=== PATIENT | female | born 1970 | race Caucasian/White ===

== ENCOUNTER 2020-04-24 13:40 | Inpatient (IN) ==
[2020-04-24] MEDS ORDERED: SODIUM CHLORIDE 0.9% 1000ML 1,000 ML IV ONE (14:04)
[2020-04-24] MEDS ORDERED: dexAMETHasone 6 MG in SYRINGE 0 ML IV ONE (14:14)
[2020-04-24] MEDS ORDERED: ONDANSETRON INJ 2 MG/ML 2 ML VIAL IV STA (15:06)
[2020-04-24] MEDS ORDERED: DEXAMETHASONE SOD INJ 4 MG/ML VIAL ONE (15:36)
[2020-04-24 15:53] LABS: Hematocrit (blood only) 33.8 % (37-47); Hemoglobin 11.4 g/dL (12.0-16.0); Mean Corpuscular Hemoglobin 29.2 pg (25-34); Mean Corpuscular Hgb Conc 33.7 g/dL (32-36); Mean Corpuscular Volume 86.4 fL (80-100); Partial Thromboplastin Ratio 1.1; Partial Thromboplastin Time 29.8 Seconds (21.0-31.0); Prothrombin Time 10.5 Seconds (9.0-12.0); RDW Coefficient of Variation 15.5 % (11.5-14.5); Red Blood Count 3.91 M/uL (4.2-5.4); White Blood Count 2.26 K/uL (4.8-10.8)
[2020-04-24 15:59] LABS: Alanine Aminotransferase 34 U/L (12-78); Aspartate Aminotransferase 41 U/L (15-37); BUN Creatinine Ratio 9.2 (10-20); Blood Urea Nitrogen 7 mg/dl (7-18); Calcium 8.2 mg/dl (8.5-10.1); Carbon Dioxide 23 mmol/L (21-32); Chloride 99 mmol/L (98-107); Creatinine Clr Calc Pharmacy 98.1 ml/min; Est GFR (African American) 104.9; Est GFR (Non-African American) 90.5; Glucose 105 mg/dl (70-99); Magnesium 2.2 mg/dl (1.8-2.4); Potassium 3.5 mmol/L (3.5-5.1); Sodium 131 mmol/L (136-145)
[2020-04-24 16:03] LABS: Albumin Globulin Ratio 0.7 (0.9-2); Alkaline Phosphatase 57 U/L (45-117); Bilirubin,Total 0.4 mg/dl (0.2-1); Globulin 4.3 gm/dl (2.5-4.0); Total Protein 7.3 gm/dl (6.4-8.2); Troponin I < 0.015 ng/ml (0-0.045)
--- NOTE | 2020-04-24 16:09 | XRay Report ---
XR chest 1V portable HISTORY: SEPSIS COMPARISON: Chest 11/12/2017. FINDINGS: No pneumothorax. No pleural effusions. The heart remains mildly enlarged. There are low lianet g volumes. There bilateral perihilar patchy airspace opacities consistent with a multifocal pneumonia . IMPRESSION: Bilateral perihilar airspace opacities consistent with a multifocal pneumonia. ACT 112: Negative or not required by law. Electronically signed by: Jude Alvarado M.D. 04/24/2020 4:07 PM
[2020-04-24] MEDS ORDERED: OPTIRAY 320 125ml IV ONE (16:10)
[2020-04-24 16:18] LABS: Giant Platelets 1+; Lymphocytes # (auto) 0.53 K/uL (1.2-3.4); Lymphocytes % (auto) 23.5 %; Mean Platelet Volume 10.7 fL (7.4-10.4); Monocytes # (auto) 0.28 K/uL (0.11-0.59); Monocytes % (auto) 12.4 %; Neutrophils # (auto) 1.45 K/uL (1.4-6.5); Neutrophils % (auto) 64.1 %; Platelet Count 99 K/uL (130-400); Platelet Estimate Decreased (Normal)
--- NOTE | 2020-04-24 16:31 | CT Scan Report ---
CHEST CTA for PULMONARY ARTERIES CT DOSE: 685.41 mGy.cm HISTORY: Shortness of breath. Covid positive. TECHNIQUE: Multiaxial CT images of the chest were performed following the intravenous administration of contrast to evaluate the pulmonary arteries. Maximal intensity projection images were also obtaine d. A dose lowering technique was utilized adhering to the principles of ALARA. COMPARISON STUDY: None. FINDINGS: Normal caliber thoracic aorta with no evidence for dissection. There is mild respiratory mo tion artifact. No definite filling defects within the pulmonary arteries to suggest pulmonary embolus . Small to moderate pericardial effusion measuring a maximal thickness posteriorly of 1.5 cm. The hea rt is normal in size. No pleural effusions. No mediastinal lymphadenopathy. Bilateral hilar lymphaden opathy is likely reactive. Limited views of the upper abdomen demonstrate a normal spleen and visuali zed adrenal glands. There appears to be hepatic steatosis. Normal esophagus. No fractures within the visualized osseous structures. No pneumothorax. The central airways are patent. Extensive bilateral p atchy and irregular airspace opacities. IMPRESSION: 1. No evidence for pulmonary embolus. 2. Extensive bilateral consolidative airspace opacities consistent with a multifocal pneumonia. 3. Small to moderate pericardial effusion. ACT 112: Negative or not required by law. Electronically signed by: Jude Alvarado M.D. 04/24/2020 4:29 PM
--- NOTE | 2020-04-24 16:33 | Emergency Department Note ---
History of Present Illness General Chief complaint: Illness Stated complaint: +COVID,INCREASED SOB Time Seen by Provider: 04/24/20 14:04 History of Present Illness Provider complaint: Shortness of breath Onset (ago): day(s) (11) Relieved By: + none Exacerbated By: + none Associated symptoms: + cough, + fever/chills, + headaches, + nausea/vomiting, + shortness of breath and + weakness 49-year-old female presents to the emergency department for shortness of breath cough diarrhea nausea vomiting and fevers. Patient stated she tested positive for COVID-19 11 days ago. She states she has a home pulse oximeter and her reading was low so she came to the emergency department. She denies any melena, hematochezia, dysuria, hematuria or chance of being . Home Medications Medication Instructions Recorded Confirmed Type tramadol 50 mg tablet See Rx Instructions PO Q6H PRN #20 03/02/20 04/24/20 Rx tab ondansetron HCl 4 mg tablet 4 mg PO Q8H PRN #20 tab 04/22/20 04/24/20 Rx Allergies Allergy/AdvReac Type Severity Reaction Status Date / Time Sulfa (Sulfonamide Allergy Mild Gastrointestinal Verified 04/24/20 14:28 Antibiotics) Upset Penicillins Allergy Unknown RASH A Verified 04/24/20 14:28 CHILD, NO RESP SYMPTOMS Past Med/Surg History Medical History Abdominal bloating Abnormal uterine bleeding (AUB) Acid reflux Cellulitis Chronic diarrhea of unknown origin Coccydynia Elderly primigravida (04/13/11) Eustachian tube dysfunction Fatigue Annie's disease History of gastritis History of gestational diabetes Hypothyroidism Irregular heart beat HOLTER MONITOR AT THIS MOMENT (WEARING FOR 30 DAYS) PRESCRIBED BY [facility]. Menopausal symptoms Obesity Pain of tooth socket Palpitations Right lower quadrant abdominal pain Seizure last one 31 yrs ago--grand mal--no meds Snoring Vasovagal syncope Vulvar itching Surgical History History of appendectomy History of section History of cholecystectomy History of colonoscopy History of dilatation and curettage History of tonsillectomy History of tooth extraction wisdom teeth S/P appendectomy S/P tonsillectomy Status post LASIK surgery of both eyes Status post primary low transverse section Family History Grandmother Family history of diabetes mellitus paternal Mother Family hx of colon cancer Colorectal cancer Hypothyroidism Brother Family hx colonic polyps 2 brothers Family/Other Family hx of colon cancer maternal aunt Family hx colonic polyps maternal aunts/uncles Father Heart disease Social History Smoking Status: Never smoker Second Hand Exposure: Yes (VERY RARELY); Hx Alcohol Use: Yes Alcohol type: beer Hx Substance Use: No Preferred Language: Divehi Communication Ability: Effective [employer] Volleyball [employer] Required: No Beliefs That Will Affect Care: None Current Living Situation: Spouse and Family Current Living Situation Comment: lives with , son and mother current occupational status: employed current occupation: Works in [employer] department at [employer]. Feels Safe at Home: Yes Assistive Devices: None Review of Systems A total of 10 systems reviewed and were otherwise negative Physical Exam Vital Signs Vital Signs - 24 hr 04/24/20 13:55 04/24/20 14:07 04/24/20 14:24 Temperature 36.8 C Temperature Source Temporal Artery Scan Pulse Rate 107 H 100 H Pulse Rate from SpO2 Sensor 100 H Respiratory Rate 22 26 H Respiratory Effort / Characteristics Non-Labored Spontaneous Respiratory Depth Normal Respiratory Pattern Regular Blood Pressure 126/83 Blood Pressure Mean 97 Blood Pressure Position Sitting Pulse Oximetry 92 88 L 92 Oxygen Delivery Method Room Air Room Air Nasal Cannula Oxygen Flow Rate 3 Sepsis Recent Fever Within 48 Hours No Sepsis New/Unexplained Change in Mental Status N/A Sepsis Action Taken by Nursing No Action Required Oxygen Flow Rate - Titration Pulse Oximetry Post Tiitration 04/24/20 14:28 04/24/20 14:29 04/24/20 14:30 Temperature Temperature Source Pulse Rate 100 H Pulse Rate from SpO2 Sensor 101 H Respiratory Rate 28 H Respiratory Effort / Characteristics Spontaneous Respiratory Depth Respiratory Pattern Blood Pressure Blood Pressure Mean Blood Pressure Position Pulse Oximetry 87 L 93 93 Oxygen Delivery Method Room Air Nasal Cannula Nasal Cannula Oxygen Flow Rate 3 Sepsis Recent Fever Within 48 Hours Sepsis New/Unexplained Change in Mental Status Sepsis Action Taken by Nursing Oxygen Flow Rate - Titration 3 Pulse Oximetry Post Tiitration 93 04/24/20 15:00 Temperature Temperature Source Pulse Rate 100 H Pulse Rate from SpO2 Sensor 100 H Respiratory Rate 28 H Respiratory Effort / Characteristics Respiratory Depth Respiratory Pattern Blood Pressure Blood Pressure Mean Blood Pressure Position Pulse Oximetry 94 Oxygen Delivery Method Oxygen Flow Rate Sepsis Recent Fever Within 48 Hours Sepsis New/Unexplained Change in Mental Status Sepsis Action Taken by Nursing Oxygen Flow Rate - Titration Pulse Oximetry Post Tiitration Physical Exam GENERAL: She is oriented to person, place, and time. She appears well-developed and well-nourished. She does not appear distressed. HENT: Exam performed. -Head: Normocephalic and atraumatic. -Right Ear: External ear normal. No mastoid tenderness. -Left Ear: External ear normal. No mastoid tenderness. -Mouth/Throat: The oropharynx is clear and moist. No trismus in the jaw. No dental abscesses or uvula swelling. No oropharyngeal exudate or tonsillar abscesses. EYES: Conjunctivae and EOM are normal. Pupils are equal, round, and reactive to light. Right eye exhibits no discharge. Left eye exhibits no discharge. No scleral icterus. NECK: Normal range of motion. Neck supple. No JVD present. No spinous process tenderness present. No carotid bruit present. No rigidity. No tracheal deviation and normal range of motion present. No Brudzinski's sign and no Kernig's sign noted. CV: Tachycardic rate, regular rhythm, normal heart sounds and intact distal pulses. There is no peripheral edema. Palpable radial pulses bue. PULM/CHEST: Diminished breath sounds bilaterally. -Chest Wall: She exhibits no tenderness. ABD: The abdomen is soft. Bowel sounds are normal. She has no distension. No mass is present. There is no tenderness. There is no rebound, no guarding, no Cutler's sign and no tenderness at McBurney's point. Rovsig negative MUSC/SKEL: Normal range of motion. There is no peripheral edema, tenderness or deformity. LYMPH: No cervical adenopathy. NEURO: She is alert and oriented to person, place, and time. She has normal strength. No cranial nerve deficit or sensory deficit. Coordination and gait normal. GCS eye subscore is 4. GCS verbal subscore is 5. GCS motor subscore is 6. Cerebellar tests wnl. SKIN: Skin is warm and dry. She is not diaphoretic. PSYCH: She has a normal mood and affect. Behavior is normal. Judgment and thought content normal. Course Course 1404: The patient was evaluated in room C5. A complete history and physical exam was performed Cardiac monitoring: An order was placed for continuous cardiac monitoring. The monitor shows a rate of 100 with sinus rhythm Patient was seen in full airborne precautions. Patient was seen in N95's, gloves, gowns, face shield by myself and staff. Patient was found to be hypoxic on room air at 87%. Patient was started on 3 L nasal cannula which improved her oxygen saturation. 6 mg Decadron IV push ordered for the patient. 1636: Vital signs stable on supplemental oxygen. Labs show leukopenia of 2.26. Lactic acid within normal limits. Imaging does show findings for multifocal pneumonia that is typical with COVID-19. Patient will be admitted to the hospitalist service given her hypoxia and oxygen requirements. Dr. Burnett [facility] hospitalist has been notified. Administered Medications Discontinued Medications Dexamethasone (Dexamethasone Sod Inj 4 Mg/Ml Vial) Confirm Administered Dose 8 mg .ROUTE .STK-MED ONE Stop: 04/24/20 15:37 Last Admin: 04/24/20 15:42 Dose: Not Given Documented by: [id number] Sodium Chloride (Nss 1000ml) 1,000 mls @ 999 mls/hr IV .Q1H1M ONE Stop: 04/24/20 15:04 Last Admin: 04/24/20 15:42 Dose: 999 mls/hr Documented by: [id number] Dexamethasone 6 mg/ Syringe 1.5 mls @ 1 mls/min IV ONE ONE Stop: 04/24/20 14:15 Last Admin: 04/24/20 15:42 Dose: 1 mls/min Documented by: [id number] Ioversol (Optiray 320 125ml) 120 ml IV ONCE ONE Stop: 04/24/20 16:11 Last Admin: 04/24/20 16:11 Dose: 120 ml Documented by: [id number] Ondansetron HCl (Ondansetron Inj 2 Mg/Ml 2 Ml Vial) 4 mg IV NOW STA Stop: 04/24/20 15:07 Last Admin: 04/24/20 15:42 Dose: 4 mg Documented by: [id number] Critical Care Time Critical Care Time: Yes Total Critical Care Time: 37 I have personally spent greater than 37 minutes of critical care time in the direct management of this patient. This includes bedside care, interpretation of diagnostic studies, and testing, discussion with consultants, patient, and family members, and other required patient management activities. This 37 minutes is in excess of all separately billable procedures. Medical Decision Making Laboratory Data Result diagrams: 04/24/20 15:27 04/24/20 15:27 Lab Results 04/24/20 04/24/20 04/24/20 Range/Units 15:27 15:27 15:27 WBC 2.26 L (4.8-10.8) K/uL RBC 3.91 L (4.2-5.4) M/uL Hgb 11.4 L (12.0-16.0) g/dL Hct 33.8 L (37-47) % MCV 86.4 (80-100) fL MCH 29.2 (25-34) pg MCHC 33.7 (32-36) g/dL RDW Std Deviation 50.0 H (36.4-46.3) fL RDW Coeff of Pari 15.5 H (11.5-14.5) % Plt Count 99 L (130-400) K/uL MPV 10.7 H (7.4-10.4) fL Immature Gran % (Auto) 0.0 % Neut % (Auto) 64.1 % Lymph % (Auto) 23.5 % [place] % (Auto) 12.4 % Eos % (Auto) 0.0 % Baso % (Auto) 0.0 % Neut # (Auto) 1.45 (1.4-6.5) K/uL Lymph # (Auto) 0.53 L (1.2-3.4) K/uL [place] # (Auto) 0.28 (0.11-0.59) K/uL Eos # (Auto) 0.00 (0-0.5) K/uL Baso # (Auto) 0.00 (0-0.2) K/uL Immature Gran # (Auto) 0.00 (0.00-0.02) K/uL Platelet Estimate Decreased L (Normal) Giant Platelets 1+ PT 10.5 (9.0-12.0) Seconds INR 1.0 (0.9-1.1) APTT 29.8 (21.0-31.0) Seconds PTT Ratio 1.1 Sodium 131 L (136-145) mmol/L Potassium 3.5 (3.5-5.1) mmol/L Chloride 99 (98-107) mmol/L Carbon Dioxide 23 (21-32) mmol/L Anion Gap 9.0 (3-11) BUN 7 (7-18) mg/dl Creatinine 0.78 (0.6-1.2) mg/dl Est Cr Clr Drug Dosing 98.1 ml/min Est GFR ( Amer) 104.9 Est GFR (Non-Af Amer) 90.5 BUN/Creatinine Ratio 9.2 L (10-20) Glucose 105 H (70-99) mg/dl Lactate (0.4-2.0) mmol/L Calcium 8.2 L (8.5-10.1) mg/dl Magnesium 2.2 (1.8-2.4) mg/dl Total Bilirubin 0.4 (0.2-1) mg/dl AST 41 H (15-37) U/L ALT 34 (12-78) U/L Alkaline Phosphatase 57 (45-117) U/L Troponin I < 0.015 (0-0.045) ng/ml Total Protein 7.3 (6.4-8.2) gm/dl Albumin 3.0 L (3.4-5.0) gm/dl Globulin 4.3 H (2.5-4.0) gm/dl Albumin/Globulin Ratio 0.7 L (0.9-2) Procalcitonin (0-0.5) ng/ml 04/24/20 04/24/20 Range/Units 15:27 15:27 WBC (4.8-10.8) K/uL RBC (4.2-5.4) M/uL Hgb (12.0-16.0) g/dL Hct (37-47) % MCV (80-100) fL MCH (25-34) pg MCHC (32-36) g/dL RDW Std Deviation (36.4-46.3) fL RDW Coeff of Pari (11.5-14.5) % Plt Count (130-400) K/uL MPV (7.4-10.4) fL Immature Gran % (Auto) % Neut % (Auto) % Lymph % (Auto) % [place] % (Auto) % Eos % (Auto) % Baso % (Auto) % Neut # (Auto) (1.4-6.5) K/uL Lymph # (Auto) (1.2-3.4) K/uL [place] # (Auto) (0.11-0.59) K/uL Eos # (Auto) (0-0.5) K/uL Baso # (Auto) (0-0.2) K/uL Immature Gran # (Auto) (0.00-0.02) K/uL Platelet Estimate (Normal) Giant Platelets PT (9.0-12.0) Seconds INR (0.9-1.1) APTT (21.0-31.0) Seconds PTT Ratio Sodium (136-145) mmol/L Potassium (3.5-5.1) mmol/L Chloride (98-107) mmol/L Carbon Dioxide (21-32) mmol/L Anion Gap (3-11) BUN (7-18) mg/dl Creatinine (0.6-1.2) mg/dl Est Cr Clr Drug Dosing ml/min Est GFR ( Amer) Est GFR (Non-Af Amer) BUN/Creatinine Ratio (10-20) Glucose (70-99) mg/dl Lactate 0.9 (0.4-2.0) mmol/L Calcium (8.5-10.1) mg/dl Magnesium (1.8-2.4) mg/dl Total Bilirubin (0.2-1) mg/dl AST (15-37) U/L ALT (12-78) U/L Alkaline Phosphatase (45-117) U/L Troponin I (0-0.045) ng/ml Total Protein (6.4-8.2) gm/dl Albumin (3.4-5.0) gm/dl Globulin (2.5-4.0) gm/dl Albumin/Globulin Ratio (0.9-2) Procalcitonin 0.08 (0-0.5) ng/ml Imaging Data Radiologist's Impression: CHEST CTA for PULMONARY ARTERIES CT DOSE: 685.41 mGy.cm HISTORY: Shortness of breath. Covid positive. TECHNIQUE: Multiaxial CT images of the chest were performed following the intravenous administration of contrast to evaluate the pulmonary arteries. Maximal intensity projection images were also obtained. A dose lowering technique was utilized adhering to the principles of ALARA. COMPARISON STUDY: None. FINDINGS: Normal caliber thoracic aorta with no evidence for dissection. There is mild respiratory motion artifact. No definite filling defects within the pulm onary arteries to suggest pulmonary embolus. Small to moderate pericardial effusion measuring a maximal thickness posteriorly of 1.5 cm. The heart is normal in size. No pleural effusions. No mediastinal lymphadenopathy. Bilateral hilar lymphadenopathy is likely reactive. Limited views of the upper abdomen demonstrate a normal spleen and visualized adrenal glands. There appears to be hepatic steatosis. Normal esophagus. No fractures within the visualized osseous structures. No pneumothorax. The central airways are patent. Extensive bilateral patchy and irregular airspace opacities. IMPRESSION: 1. No evidence for pulmonary embolus. 2. Extensive bilateral consolidative airspace opacities consistent with a multifocal pneumonia. 3. Small to moderate pericardial effusion. ACT 112: Negative or not required by law. Electronically signed by: Jude Alvarado M.D. 04/24/2020 4:29 PM Dictated: 04/24/20 1624 Transcribed: 04/24/20 1624 XR chest 1V portable HISTORY: SEPSIS COMPARISON: Chest 11/12/2017. FINDINGS: No pneumothorax. No pleural effusions. The heart remains mildly e nlarged. There are low lung volumes. There bilateral perihilar patchy airspace opacities consistent with a multifocal pneumonia. IMPRESSION: Bilateral perihilar airspace opacities consistent with a multifocal pneumonia. ACT 112: Negative or not required by law. Electronically signed by: Jude Alvarado M.D. 04/24/2020 4:07 PM Dictated: 04/24/20 1607 Transcribed: 04/24/20 1607 ECG Data Indication: + SOB/dyspnea Rate (beats per minute): 102 Rhythm: + sinus tachycardia ECG Intervals/blocks: + Normal QRS, + Normal IN and + Normal QT-c ECG ST segments: + Normal ST segments [facility] Narrative 1404: The patient was evaluated in room C5. A complete history and physical exam was performed Cardiac monitoring: An order was placed for continuous cardiac monitoring. The monitor shows a rate of 100 with sinus rhythm Patient was seen in full airborne precautions. Patient was seen in N95's, gloves, gowns, face shield by myself and staff. Patient was found to be hypoxic on room air at 87%. Patient was started on 3 L nasal cannula which improved her oxygen saturation. 6 mg Decadron IV push ordered for the patient. 1636: Vital signs stable on supplemental oxygen. Labs show leukopenia of 2.26. Lactic acid within normal limits. Imaging does show findings for multifocal pneumonia that is typical with COVID-19. Patient will be admitted to the hospitalist service given her hypoxia and oxygen requirements. Dr. Burnett [facility] hospitalist has been notified. Impression & Plan Hypoxia, COVID-19 Discharge Plan Visit Data Chief Complaint: Illness Stated Complaint: +COVID,INCREASED SOB ED Provider: Damian Lange Discharge Problem: Hypoxia, COVID-19 Patient Disposition: Admitted As Inpatient Forms Stand Alone Forms: [facility] Prescriptions Prescriptions: No Action ondansetron HCl 4 mg tablet 4 mg PO Q8H PRN (Reason: nausea and vomiting) Qty: 20 RF: 1 tramadol 50 mg tablet See Rx Instructions PO Q6H PRN (Reason: pain) Qty: 20 RF: 0 Referrals Referrals: Tameka Anderson CRNP [Primary Care Provider] -
--- NOTE | 2020-04-24 16:50 | History & Physical Report ---
Date of Service April 24, 2020 Assessment & Plan (1) COVID-19: Dexamethasone 6 mg IV daily for 10 days or up until discharge. Within 12 days of illness, low oxygen requirement (largest benefit in ACTT-1 trial) therefore will give remdesivir in addition (CDC BIII recommendation). Discussed lack of data combining remdesivir and dexamethasone and no evidence of mortality benefit with the patient. COVID-19 isolation precautions Encourage self proning. (2) Hypoxia: Aim O2 sats > 94% (3) Thrombocytopenia: Monitor with AM labs, suspect secondary to infection as above. (4) DVT prophylaxis: Lovenox 40mg SQ daily Admission and Anticipated Discharge Date Admission Date: April 24, 2020 History of Present Illness Chief Complaint: Shortness of breath, fatigue. Primary Care Provider: MIQUEL Cabralesjerry Baker is a 49-year-old female who presents to the ER with worsening symptoms related to her known COVID-19 pneumonia. She reports ongoing fever, chills, shortness of breath, cough, myalgias, headache, nausea/vomiting, poor appetite, fatigue. She denies any loss of taste or smell, chest or abdominal pain. Initial symptoms started 10 days ago. Progressively getting worse over the last few days. In the ER chest x-ray concerning for bilateral perihilar airspace opacities consistent with multifocal pneumonia. Procalcitonin negative. CT angiogram was performed due to a D-dimer 1530 which was negative for pulmonary embolism. Allergies Allergy/AdvReac Type Severity Reaction Status Date / Time Sulfa (Sulfonamide Allergy Mild Gastrointestinal Verified 04/24/20 14:28 Antibiotics) Upset Penicillins Allergy Unknown RASH A Verified 04/24/20 14:28 CHILD, NO RESP SYMPTOMS Home Medications Medication Instructions Recorded Confirmed Type tramadol 50 mg tablet See Rx Instructions PO Q6H PRN #20 03/02/20 04/24/20 Rx tab ondansetron HCl 4 mg tablet 4 mg PO Q8H PRN #20 tab 04/22/20 04/24/20 Rx Past Med/Surg History Medical History Abdominal bloating Abnormal uterine bleeding (AUB) Acid reflux Cellulitis Chronic diarrhea of unknown origin Coccydynia Elderly primigravida (04/13/11) Eustachian tube dysfunction Fatigue Annie's disease History of gastritis History of gestational diabetes Hypothyroidism Irregular heart beat HOLTER MONITOR AT THIS MOMENT (WEARING FOR 30 DAYS) PRESCRIBED BY [facility]. Menopausal symptoms Obesity Pain of tooth socket Palpitations Right lower quadrant abdominal pain Seizure last one 31 yrs ago--grand mal--no meds Snoring Vasovagal syncope Vulvar itching Surgical History History of appendectomy History of section History of cholecystectomy History of colonoscopy History of dilatation and curettage History of tonsillectomy History of tooth extraction wisdom teeth S/P appendectomy S/P tonsillectomy Status post LASIK surgery of both eyes Status post primary low transverse section Family History Grandmother Family history of diabetes mellitus paternal Mother Family hx of colon cancer Colorectal cancer Hypothyroidism Brother Family hx colonic polyps 2 brothers Family/Other Family hx of colon cancer maternal aunt Family hx colonic polyps maternal aunts/uncles Father Heart disease Social History Smoking Status: Former smoker Second Hand Exposure: Yes (VERY RARELY); Hx Alcohol Use: No Hx Substance Use: No Preferred Language: Rw[place]an Communication Ability: Effective Mailroom Personnel Required: No Beliefs That Will Affect Care: None Current Living Situation: Spouse Current Living Situation Comment: lives with , son and mother current occupational status: employed current occupation: Works in [employer] department at [employer]. Other Information That Helps Us Care for You: No Feels Safe at Home: Yes Safety Concerns: Feels Safe At This Time Assistive Devices: Oxygen - Continuous Review of Systems Review of Systems: All systems reviewed & are unremarkable except as noted in HPI & below Physical Exam Constitutional: well developed, well nourished and + morbidly obese; no acute distress Eyes: + anicteric sclerae; normal pupil size ENMT: external ear and nose normal, oropharynx normal Respiratory: normal respiratory effort; no respiratory distress Auscultation: + diminished lung sounds (Bibasal); no crackles and no wheezes Cardiovascular: RRR, no murmur, no edema Gastrointestinal (Abdomen): normal bowel sounds, soft, nontender, no hepatosplenomegaly Musculoskeletal: no cyanosis or clubbing, extremities motor strength 5/5 Skin: no rashes, warm and dry Neurologic: moves all extremities and awake; not confused Psychiatric: A+Ox3, euthymic affect Results & Data Results & Data ([facility]) Vital Signs (Past 12 Hours) Vital Signs Temp Pulse Resp BP Pulse Ox 04/24/20 16:27 134/72 93 04/24/20 15:00 100 H 28 H 94 04/24/20 14:30 100 H 28 H 93 04/24/20 14:29 93 04/24/20 14:28 87 L 04/24/20 14:24 100 H 26 H 92 04/24/20 14:07 88 L 04/24/20 13:55 36.8 C 107 H 22 126/83 92 Diagnostic Findings CHEST CTA for PULMONARY ARTERIES IMPRESSION: 1. No evidence for pulmonary embolus. 2. Extensive bilateral consolidative airspace opacities consistent with a multifocal pneumonia. 3. Small to moderate pericardial effusion. XR chest 1V portable IMPRESSION: Bilateral perihilar airspace opacities consistent with a multifocal pneumonia. Medications Administered ER medications given: Dexamethasone 6 mg IV NSS 1 hour bolus Ondansetron 4 mg IV ECG Indication: SOB/dyspnea Rate (beats per minute): 102 Rhythm: normal sinus Findings: + other (Poor R wave progression, T wave flattening throughout) Comparison ECG Date: from (November 12, 2017) Change: no significant change PG Care Time/CCT Total # of Minutes Spent Total Time Spent with Patient: Total time spent is greater than 50% in coordination of care (as documented) at patient's floor/unit and/or counseling patient: Coding Level of Care Code 41020 Initial Inpt Care Lvl 3 Diagnoses COVID-19 U07.1 Hypoxia R09.02 Thrombocytopenia D69.6 DVT prophylaxis Z29.9
[2020-04-24 17:17] LABS: D Dimer 1530 ug/L FEU (0-500)
[2020-04-24 17:22] LABS: C Reactive Protein 4.44 mg/dl (0-0.29); Thyroid Stimulating Hormone 2.92 uIu/ml (0.300-4.500)
[2020-04-24] MEDS ORDERED: REMDESIVIR 200 MG in SODIUM CHLORIDE 0.9% 210 ML IV ONE (20:00)
[2020-04-24] MEDS: SODIUM CHLORIDE 0.9% 10ML FLUSH IV SCH (21:49)
[2020-04-24 22:36] LABS: Influenza A virus by PCR Negative (Negative); Influenza B virus by PCR Negative (Negative)
[2020-04-25] MEDS: ACETAMINOPHEN 325 MG TAB PO PRN ×2 (03:03→08:21)
[2020-04-25 04:06] LABS: Appearance Urine Clear (Clear); Bacteria Urine Automated Negative (Negative); Bilirubin Urine Negative (Negative); Blood Urine 3+ (Negative); Color Urine Yellow; Epithelial Cell Urine Auto 20-30 /lpf (0-5); Glucose Urine UA Negative (Negative); Ketones Urine Negative (Negative); Leukocyte Esterase Urine Negative (Negative); Nitrite Urine Negative (Negative); Protein Urine 1+ (Negative); RBC Urine Automated >30 /hpf (0-4); Urobilinogen Urine Negative (Negative)
[2020-04-25] MEDS: dexAMETHasone 6 MG in SYRINGE 0 ML IV SCH (08:25)
[2020-04-25] MEDS ORDERED: ENOXAPARIN INJ 40 MG/0.4 ML SYR SQ SCH (09:00)
[2020-04-25] MEDS ORDERED: XOPENEX/ATROVENT 1.25mg/0.5MG NEB COMBO NEB ONE (09:45)
[2020-04-25] MEDS ORDERED: LEVALBUTEROL 1.25MG/0.5ML NEB INH ONE (09:45)
[2020-04-25] MEDS ORDERED: IPRATROPIUM BROMIDE NEB SOLN 0.02% 2.5 ML VIAL INH ONE (09:45)
--- NOTE | 2020-04-25 09:47 | Hospitalist Progress Note ---
Date of Service April 25, 2020 Assessment & Plan (1) Acute respiratory failure with hypoxia: 2nd to extensive COVID-19 pneumonia. no evidence of complicating PE or CHF. procal negative - likely no superimposed bacterial pneumonia. defer on IV antibiotics for now. (2) Pneumonia due to 2019 novel coronavirus: Severe. Initial dx 04/19/20, lab-confirmed via PCR. Mild-moderate o2 requirement currently. Continue self-proning, flutter valve, incentive spirometry. Add mucinex 1200mg BID. Schedule xopenex/atrovent nebs q6h. Recent studies suggesti low-dose aspirin 81mg daily during COVID illness may reduce the risk of cardiopulmonary complications and more severe illness - thus, start asa 81mg daily. Day #2 of 10 - dexamethasone 6mg daily. Day #2 of remdesivir, plan 5-day course with daily AST/ALT. Convalescent plasma unlikely to be of benefit at this point in her illness course. Again no evidence of complicating PE or CHF on CTA chest. (3) Pancytopenia: Likely viral suppression from COVID-19 infection. Recheck cbc w/ diff in am. (4) Pericardial effusion: Mild-moderate on CTA chest. No chest pain or pleuritic pain to suggest pericarditis. No EKG features to suggest pericarditis. No signs of tamponade on examination. Echo ordered. Patient made aware of effusion. Suspect it is due to COVID; can't rule out other causes at this time however. Await echo to get a better sense of size. (5) Hypothyroidism: listed as diagnosis in chart but not on meds and TSH 2.5 this admission. (6) Acid reflux: Pepcid 20mg BID, especially in light of steroid use. (7) Hyponatremia: 131 on admission. had not been eating prior to admission - likely volume depletion. repeat BMP am. (8) Elevated AST (SGOT): Likely 2nd to COVID-19 infection. Recheck ast/alt in am given the ast elevation and remdesivir use. AST can also be elevated if CPK is elevated - thus, check CPK am. (9) Morbid obesity with BMI of 40.0-44.9, adult: BMI 41.3 (10) DVT prophylaxis: Due to higher risk of VTE with COVID - lovenox 50mg BID. Updated pt's by phone this evening. Admission and Anticipated Discharge Date Admission Date: April 24, 2020 Subjective patient reports that the neb treatment given earlier today was helpful with her dyspnea, chest tightness, and overall breathing. asks for additional treatments. she has no prior history of asthma/COPD. she has significant [place] with walking in room. minor dyspnea at rest. denies any chest pain. denies any positional chest discomforts. no pleuritic chest pain. she voices that she is scared and anxious about her diagnosis. she is self-proning - in fact, slept prone for several hours last evening. appetite is good. continues with low-grade fevers. Review of Systems Constitutional: + fever, + fatigue and + weakness Ear, Nose, Mouth, Throat: no nasal congestion no current loss of taste or smell Respiratory: + cough, + dyspnea and + dyspnea on exertion; no hemoptysis and no sputum production Cardiovascular: no chest pain and no orthopnea Gastrointestinal: no abdominal pain and no vomiting Musculoskeletal: + body aches Integumentary: no rash Physical Exam Constitutional: + morbidly obese; no acute distress and no altered mental status ENMT: external ear and nose normal, oropharynx normal Respiratory: + cough; no respiratory distress Auscultation: + rales (extensive b/l posterior chest ); no wheezes Cardiovascular: Rate/Rhythm: regular rate and regular rhythm Heart Sounds: normal S1 and normal S2; no murmur and no cardiac rub Vessels: posterior tibial pulses present and dorsalis pedis pulses present; no JVD Extremities: no edema Gastrointestinal (Abdomen): normal bowel sounds, soft, nontender, no hepatosplenomegaly Skin: no rashes, warm and dry Psychiatric: Orientation: alert and oriented x 3 Affect: + anxious affect Results & Data Results & Data ([facility]) Vital Signs (Past 12 Hours) Vital Signs Temp Pulse Resp BP BP Pulse Ox 04/25/20 08:38 37.7 C H 104 H 20 132/83 92 04/24/20 21:47 37.6 C H 87 14 136/68 92 Laboratory Results Laboratory Results - last 24 hr 04/24/20 04/24/20 04/24/20 15:27 15:27 15:27 WBC 2.26 L RBC 3.91 L Hgb 11.4 L Hct 33.8 L MCV 86.4 MCH 29.2 MCHC 33.7 RDW Std Deviation 50.0 H RDW Coeff of Pari 15.5 H Plt Count 99 L MPV 10.7 H Immature Gran % (Auto) 0.0 Neut % (Auto) 64.1 Lymph % (Auto) 23.5 [place] % (Auto) 12.4 Eos % (Auto) 0.0 Baso % (Auto) 0.0 Neut # (Auto) 1.45 Lymph # (Auto) 0.53 L [place] # (Auto) 0.28 Eos # (Auto) 0.00 Baso # (Auto) 0.00 Immature Gran # (Auto) 0.00 Platelet Estimate Decreased L Giant Platelets 1+ PT 10.5 INR 1.0 APTT 29.8 PTT Ratio 1.1 D-Dimer Sodium 131 L Potassium 3.5 Chloride 99 Carbon Dioxide 23 Anion Gap 9.0 BUN 7 Creatinine 0.78 Est Cr Clr Drug Dosing 98.1 Est GFR ( Amer) 104.9 Est GFR (Non-Af Amer) 90.5 BUN/Creatinine Ratio 9.2 L Glucose 105 H Lactate Calcium 8.2 L Magnesium 2.2 Total Bilirubin 0.4 AST 41 H ALT 34 Alkaline Phosphatase 57 Troponin I < 0.015 C-Reactive Protein Total Protein 7.3 Albumin 3.0 L Globulin 4.3 H Albumin/Globulin Ratio 0.7 L Procalcitonin TSH Urine Color Urine Appearance Urine pH Ur Specific [place]iller Urine Protein Urine Glucose (UA) Urine Ketones Urine Blood Urine Nitrite Urine Bilirubin Urine Urobilinogen Ur Leukocyte Esterase Urine WBC (Auto) Urine RBC (Auto) U Hyaline Cast (Auto) U Epithel Cells (Auto) Urine Bacteria (Auto) Influ A Molecular Assay Influ B Molecular Assay 04/24/20 04/24/20 04/24/20 15:27 15:27 15:27 WBC RBC Hgb Hct MCV MCH MCHC RDW Std Deviation RDW Coeff of Pari Plt Count MPV Immature Gran % (Auto) Neut % (Auto) Lymph % (Auto) [place] % (Auto) Eos % (Auto) Baso % (Auto) Neut # (Auto) Lymph # (Auto) [place] # (Auto) Eos # (Auto) Baso # (Auto) Immature Gran # (Auto) Platelet Estimate Giant Platelets PT INR APTT PTT Ratio D-Dimer 1530 H* Sodium Potassium Chloride Carbon Dioxide Anion Gap BUN Creatinine Est Cr Clr Drug Dosing Est GFR ( Amer) Est GFR (Non-Af Amer) BUN/Creatinine Ratio Glucose Lactate 0.9 Calcium Magnesium Total Bilirubin AST ALT Alkaline Phosphatase Troponin I C-Reactive Protein Total Protein Albumin Globulin Albumin/Globulin Ratio Procalcitonin 0.08 TSH Urine Color Urine Appearance Urine pH Ur Specific [place] Urine Protein Urine Glucose (UA) Urine Ketones Urine Blood Urine Nitrite Urine Bilirubin Urine Urobilinogen Ur Leukocyte Esterase Urine WBC (Auto) Urine RBC (Auto) U Hyaline Cast (Auto) U Epithel Cells (Auto) Urine Bacteria (Auto) Influ A Molecular Assay Influ B Molecular Assay 04/24/20 04/24/20 04/25/20 15:27 21:50 03:23 WBC RBC Hgb Hct MCV MCH MCHC RDW Std Deviation RDW Coeff of Pari Plt Count MPV Immature Gran % (Auto) Neut % (Auto) Lymph % (Auto) [place] % (Auto) Eos % (Auto) Baso % (Auto) Neut # (Auto) Lymph # (Auto) [place] # (Auto) Eos # (Auto) Baso # (Auto) Immature Gran # (Auto) Platelet Estimate Giant Platelets PT INR APTT PTT Ratio D-Dimer Sodium Potassium Chloride Carbon Dioxide Anion Gap BUN Creatinine Est Cr Clr Drug Dosing Est GFR ( Amer) Est GFR (Non-Af Amer) BUN/Creatinine Ratio Glucose Lactate Calcium Magnesium Total Bilirubin AST ALT Alkaline Phosphatase Troponin I C-Reactive Protein 4.44 H Total Protein Albumin Globulin Albumin/Globulin Ratio Procalcitonin TSH 2.920 Urine Color Yellow Urine Appearance Clear Urine pH 6.0 Ur Specific [place] 1.030 Urine Protein 1+ H Urine Glucose (UA) Negative Urine Ketones Negative Urine Blood 3+ H Urine Nitrite Negative Urine Bilirubin Negative Urine Urobilinogen Negative Ur Leukocyte Esterase Negative Urine WBC (Auto) 1-5 Urine RBC (Auto) >30 H U Hyaline Cast (Auto) 1-5 U Epithel Cells (Auto) 20-30 H Urine Bacteria (Auto) Negative Influ A Molecular Assay Negative Influ B Molecular Assay Negative PG Care Time/CCT Total # of Minutes Spent Total Time Spent with Patient: Total time spent is greater than 50% in coordination of care (as documented) at patient's floor/unit and/or counseling patient: Coding Level of Care Code 01678 Subseq Hosp Care Lvl 3 Diagnoses Acute respiratory failure with hypoxia J96.01 Pneumonia due to 2019 novel coronavirus U07.1; J12.82 Pancytopenia D61.818 Pericardial effusion I31.3 Hypothyroidism E03.9 Hypothyroidism type: acquired Acid reflux K21.9 Esophagitis presence: without esophagitis Hyponatremia E87.1 Elevated AST (SGOT) R74.01 Morbid obesity with BMI of 40.0-44.9, adult E66.01; Z68.41 DVT prophylaxis Z29.9 (1) Hypothyroidism Hypothyroidism type: acquired Qualified Code(s): E03.9 - Hypothyroidism, unspecified (2) Acid reflux Esophagitis presence: without esophagitis Qualified Code(s): K21.9 - Gastro- esophageal reflux disease without esophagitis
--- NOTE | 2020-04-25 10:10 | Electrocardiogram Report ---
Test Reason : Blood Pressure : / mmHG Vent. Rate : 102 BPM Atrial Rate : 102 BPM P-R Int : 154 ms QRS Dur : 084 ms QT Int : 358 ms P-R-T Axes : 029 063 012 degrees QTc Int : 466 ms Sinus tachycardia Poor R wave progression, consider anterior IN vs. lead placement vs. LVH Nonspecific T wave abnormality When compared with ECG of 12-NOV-2017 00:03, No significant change was found Confirmed by Trell Montanez ([id number]) on 04/25/2020 10:10:04 AM Referred By: REFERRED SELF Confirmed By:Trell Montanez
[2020-04-25] MEDS: guaiFENesin 600 MG TABCR PO SCH ×2 (10:20→20:22)
[2020-04-25] MEDS: ASPIRIN 81 MG ECTAB PO SCH (10:20)
[2020-04-25] MEDS: FAMOTIDINE 20 MG TAB PO SCH ×2 (10:20→20:23)
[2020-04-25] MEDS ORDERED: XOPENEX/ATROVENT 1.25mg/0.5MG NEB COMBO NEB SCH (15:30)
[2020-04-25] MEDS: LEVALBUTEROL 1.25MG/0.5ML NEB INH SCH ×2 (16:12→19:44)
[2020-04-25] MEDS: IPRATROPIUM BROMIDE NEB SOLN 0.02% 2.5 ML VIAL INH SCH ×2 (16:12→19:44)
[2020-04-25] MEDS: REMDESIVIR 100 MG in SODIUM CHLORIDE 0.9% 230 ML IV SCH (20:21)
[2020-04-25] MEDS: ENOXAPARIN INJ 60 MG/0.6 ML SYR SQ SCH (20:22)
[2020-04-25] MEDS: SODIUM CHLORIDE 0.9% 10ML FLUSH IV SCH (20:23)
[2020-04-25] MEDS: ONDANSETRON INJ 2 MG/ML 2 ML VIAL IV PRN (23:14)
[2020-04-26] MEDS: LEVALBUTEROL 1.25MG/0.5ML NEB INH SCH ×2 (00:38→08:01)
[2020-04-26] MEDS: IPRATROPIUM BROMIDE NEB SOLN 0.02% 2.5 ML VIAL INH SCH ×2 (00:38→08:01)
[2020-04-26] MEDS: ONDANSETRON INJ 2 MG/ML 2 ML VIAL IV PRN ×2 (05:57→12:36)
[2020-04-26 06:00] LABS: Hematocrit (blood only) 33.7 % (37-47); Hemoglobin 11.1 g/dL (12.0-16.0); Mean Corpuscular Hemoglobin 28.5 pg (25-34); Mean Corpuscular Hgb Conc 32.9 g/dL (32-36); Mean Corpuscular Volume 86.4 fL (80-100); RDW Coefficient of Variation 15.7 % (11.5-14.5); RDW Standard Deviation 50.5 fL (36.4-46.3); White Blood Count 3.85 K/uL (4.8-10.8)
[2020-04-26 06:01] LABS: Platelet Count 94 K/uL (130-400)
[2020-04-26 06:19] LABS: Immature Granulocytes # (auto) 0.01 K/uL (0.00-0.02); Immature Granulocytes % (auto) 0.3 %; Lymphocytes # (auto) 0.77 K/uL (1.2-3.4); Monocytes # (auto) 0.28 K/uL (0.11-0.59); Monocytes % (auto) 7.3 %; Neutrophils # (auto) 2.79 K/uL (1.4-6.5); Neutrophils % (auto) 72.4 %; RBC Morphology Unremarkable
[2020-04-26 06:38] LABS: BUN Creatinine Ratio 18.7 (10-20); Calcium 7.7 mg/dl (8.5-10.1); Creatinine Clr Calc Pharmacy 116.4 ml/min; Est GFR (African American) 121.3; Est GFR (Non-African American) 104.7; Potassium 3.8 mmol/L (3.5-5.1)
[2020-04-26] MEDS: ENOXAPARIN INJ 60 MG/0.6 ML SYR SQ SCH ×2 (08:14→20:51)
[2020-04-26] MEDS: dexAMETHasone 6 MG in SYRINGE 0 ML IV SCH (08:14)
[2020-04-26] MEDS: FAMOTIDINE 20 MG TAB PO SCH ×2 (08:15→20:51)
[2020-04-26] MEDS: ASPIRIN 81 MG ECTAB PO SCH (08:15)
[2020-04-26] MEDS: guaiFENesin 600 MG TABCR PO SCH ×2 (08:16→20:51)
[2020-04-26] MEDS: ACETAMINOPHEN 325 MG TAB PO PRN (08:41)
--- NOTE | 2020-04-26 19:58 | Hospitalist Progress Note ---
Date of Service April 26, 2020 Assessment & Plan (1) Acute respiratory failure with hypoxia: 2nd to extensive COVID-19 pneumonia. no evidence of complicating PE or CHF. procal negative - likely no superimposed bacterial pneumonia. defer on IV antibiotics for now. (2) Pneumonia due to 2019 novel coronavirus: Severe. Initial dx 04/19/20, lab-confirmed via PCR. Mild-moderate o2 requirement currently. On 4-5 L NC. Continue self-proning, flutter valve, incentive spirometry. Add mucinex 1200mg BID. Schedule xopenex/atrovent nebs q6h. Recent studies suggesting low-dose aspirin 81mg daily during COVID illness may reduce the risk of cardiopulmonary complications and more severe illness - thus, start asa 81mg daily. Day #3 of 10 - dexamethasone 6mg daily. Day #3 of remdesivir, plan 5-day course with daily AST/ALT. Convalescent plasma unlikely to be of benefit at this point in her illness course. Again no evidence of complicating PE or CHF on CTA chest. (3) Pancytopenia: Likely viral suppression from COVID-19 infection. (4) Pericardial effusion: Mild-moderate on CTA chest. No chest pain or pleuritic pain to suggest pericarditis. No EKG features to suggest pericarditis. No signs of tamponade on examination. Echo ordered. Patient made aware of effusion. Suspect it is due to COVID; can't rule out other causes at this time however. Await echo to get a better sense of size. Not completed. (5) Hypothyroidism: listed as diagnosis in chart but not on meds and TSH 2.5 this admission. (6) Acid reflux: Pepcid 20mg BID, especially in light of steroid use. (7) Hyponatremia: 131 on admission. had not been eating prior to admission - likely volume depletion. repeat BMP am. (8) Elevated AST (SGOT): Likely 2nd to COVID-19 infection. Recheck ast/alt in am given the ast elevation and remdesivir use. AST can also be elevated if CPK is elevated - thus, check CPK am. (9) Morbid obesity with BMI of 40.0-44.9, adult: BMI 41.3 (10) DVT prophylaxis: Due to higher risk of VTE with COVID - lovenox 50mg BID. Updated pt's by phone on 3/21 Admission and Anticipated Discharge Date Admission Date: April 24, 2020 Subjective Patient reports feeling slightly better today. She reports she doesn't like to use that word, due to possibly "jinxing" it. She is happy that she has not required more oxygen today. Review of Systems Review of Systems: All systems reviewed & are unremarkable except as noted in HPI & below Physical Exam Physical Exam: Constitutional: + morbidly obese; no acute distress and no altered mental status ENMT: external ear and nose normal, oropharynx normal Respiratory: no respiratory distress Auscultation: + wheezes bilateral Cardiovascular: Rate/Rhythm: regular rate and regular rhythm Heart Sounds: normal S1 and normal S2; no murmur and no cardiac rub Vessels: posterior tibial pulses present and dorsalis pedis pulses present; no JVD Extremities: no edema Gastrointestinal (Abdomen): normal bowel sounds, soft, nontender, no hepatosplenomegaly Skin: no rashes, warm and dry Psychiatric: Orientation: alert and oriented x 3 Affect: + anxious affect Results & Data Results & Data ([facility]) Vital Signs (Past 12 Hours) Vital Signs Temp Pulse Resp BP Pulse Ox 04/26/20 15:17 37.0 C 91 H 22 138/83 90 04/26/20 08:01 88 18 90 PG Care Time/CCT Total # of Minutes Spent Total Time Spent with Patient: Total time spent is greater than 50% in coordination of care (as documented) at patient's floor/unit and/or counseling patient: Coding Level of Care Code 63648 Subseq Hosp Care Lvl 3 Diagnoses Acute respiratory failure with hypoxia J96.01 Pneumonia due to 2019 novel coronavirus U07.1; J12.82 Pancytopenia D61.818 Pericardial effusion I31.3 Hypothyroidism E03.9 Hypothyroidism type: acquired Acid reflux K21.9 Esophagitis presence: without esophagitis Hyponatremia E87.1 Elevated AST (SGOT) R74.01 Morbid obesity with BMI of 40.0-44.9, adult E66.01; Z68.41 DVT prophylaxis Z29.9 Time Spent (min) 35 (1) Hypothyroidism Hypothyroidism type: acquired Qualified Code(s): E03.9 - Hypothyroidism, unspecified (2) Acid reflux Esophagitis presence: without esophagitis Qualified Code(s): K21.9 - Gastro- esophageal reflux disease without esophagitis
[2020-04-26] MEDS: REMDESIVIR 100 MG in SODIUM CHLORIDE 0.9% 230 ML IV SCH (20:51)
[2020-04-26] MEDS: SODIUM CHLORIDE 0.9% 10ML FLUSH IV SCH (22:10)
[2020-04-27] MEDS: ONDANSETRON INJ 2 MG/ML 2 ML VIAL IV PRN ×3 (01:39→21:45)
[2020-04-27] MEDS: ACETAMINOPHEN 325 MG TAB PO PRN ×3 (06:45→21:46)
[2020-04-27] MEDS: LEVALBUTEROL 1.25MG/0.5ML NEB INH PRN ×2 (07:22→20:22)
[2020-04-27] MEDS: IPRATROPIUM BROMIDE NEB SOLN 0.02% 2.5 ML VIAL INH PRN ×2 (07:23→20:22)
[2020-04-27 08:11] LABS: Hematocrit (blood only) 36.1 % (37-47); Hemoglobin 11.9 g/dL (12.0-16.0); Mean Corpuscular Hemoglobin 28.6 pg (25-34); Mean Corpuscular Volume 86.8 fL (80-100); Mean Platelet Volume 12.1 fL (7.4-10.4); Platelet Count 124 K/uL (130-400); RDW Coefficient of Variation 15.6 % (11.5-14.5); RDW Standard Deviation 50.1 fL (36.4-46.3); Red Blood Count 4.16 M/uL (4.2-5.4); White Blood Count 6.21 K/uL (4.8-10.8)
[2020-04-27 08:29] LABS: ALC (manual) 1.14 K/uL (1.2-3.4); Lymphocytes # (manual) 1.08 K/uL (1.2-3.4); Lymphocytes % (manual) 17.4 %; Monocytes # (manual) 0.22 K/uL (0.11-0.59); Monocytes % (manual) 3.5 %; Myelocytes # (manual) 0.06 K/uL (0-0); Myelocytes % (manual) 0.9 %; Neutrophils % (manual) 77.3 %; Plasma Cells # (manual) 0.06 K/uL (0-0); Plasma Cells % (manual) 0.9 %
[2020-04-27 08:41] LABS: Albumin Level 2.7 gm/dl (3.4-5.0); BUN Creatinine Ratio 17.4 (10-20); Calcium 8.3 mg/dl (8.5-10.1); Creatinine Clr Calc Pharmacy 108.3 ml/min; Est GFR (African American) 115.6; Est GFR (Non-African American) 99.7; Potassium 3.6 mmol/L (3.5-5.1)
[2020-04-27 08:44] LABS: Albumin Globulin Ratio 0.6 (0.9-2); Bilirubin,Total 0.5 mg/dl (0.2-1); Globulin 4.4 gm/dl (2.5-4.0); Total Protein 7.1 gm/dl (6.4-8.2)
[2020-04-27] MEDS: FAMOTIDINE 20 MG TAB PO SCH ×2 (08:57→21:45)
[2020-04-27] MEDS: ASPIRIN 81 MG ECTAB PO SCH (08:57)
[2020-04-27] MEDS: dexAMETHasone 6 MG in SYRINGE 0 ML IV SCH (08:57)
[2020-04-27] MEDS: guaiFENesin 600 MG TABCR PO SCH ×2 (08:58→21:45)
[2020-04-27] MEDS: ENOXAPARIN INJ 60 MG/0.6 ML SYR SQ SCH ×2 (08:58→21:44)
--- NOTE | 2020-04-27 15:49 | Hospitalist Progress Note ---
Date of Service April 27, 2020 Assessment & Plan (1) Pneumonia due to 2019 novel coronavirus: Initial dx 04/19/20, lab-confirmed via PCR. - Continue dexamethasone 6 mg IV daily (End date: 05/04/2020) - Continue self-proning, flutter valve, incentive spirometry. - Continue Mucinex 1200mg PO BID. - Continue Xopenex/atrovent nebs q6h. - Continue remdesivir (End date: 04/28) - Continue ASA 81 mg PO daily (Intermediate-dose anticoagulation, aspirin, and in?hospital mortality in COVID-19: A propensity score-matched analysis) - Stable today. Tough night, but now better. Encouraged to keep up with pulmonary toilet. (2) Acute respiratory failure with hypoxia: 2nd to extensive COVID-19 pneumonia. - As above (3) Pericardial effusion: Mild-moderate on CTA chest on 04/24. No chest pain or pleuritic pain to suggest pericarditis. No EKG features to suggest pericarditis. - Echo ordered, but this won't be done until 2 weeks past Covid diagnosis. (4) Acid reflux: - Continue Pepcid 20mg PO BID. (5) Hypothyroidism: Listed as diagnosis in chart but not on meds. TSH was 2.5 this admission. - No inpatient needs (6) Elevated AST (SGOT): Likely 2nd to COVID-19 infection. - Mild elevation with AST at 40. Monitor. (7) Morbid obesity with BMI of 40.0-44.9, adult: BMI 41.3. (8) DVT prophylaxis: Lovenox 50mg SQ BID -> Intermediate dosage based on hospital protocol. Admission and Anticipated Discharge Date Admission Date: April 24, 2020 Subjective Still feels quite short of breath moving at all. Overnight had further shortness of breath, though better now that she's up. Reports no fevers/chills, chest pain, abdominal pain, nausea, or vomiting. Physical Exam Constitutional: WD/WN, vitals as above Eyes: EOM intact bilaterally; no conjunctival abnormality ENMT: external ear and nose normal, oropharynx normal Neck: trachea midline, no thyromegaly normal visual inspection Respiratory: normal respiratory effort, lungs clear to auscultation no respiratory distress Cardiovascular: RRR, no murmur, no edema Gastrointestinal (Abdomen): Inspection/Auscultation: abdomen normal to inspection; abdomen not distended Musculoskeletal: no cyanosis or clubbing, extremities motor strength 5/5 Skin: no rashes, warm and dry Neurologic: moves all extremities and awake Psychiatric: Orientation: alert, oriented to person and cooperative Results & Data Results & Data ([facility]) Vital Signs (Past 12 Hours) Vital Signs Temp Pulse Resp BP BP Pulse Ox 04/27/20 15:10 36.9 C 92 H 16 123/83 95 04/27/20 08:47 37.2 C 04/27/20 07:23 112 H 20 92 04/27/20 07:12 37.6 C H 107 H 16 128/84 93 04/27/20 06:40 37.7 C H PG Care Time/CCT Total # of Minutes Spent Total Time Spent with Patient: Total time spent is greater than 50% in coordination of care (as documented) at patient's floor/unit and/or counseling patient: Coding Level of Care Code 84185 Subseq Hosp Care Lvl 3 Diagnoses Pneumonia due to 2019 novel coronavirus U07.1; J12.82 Acute respiratory failure with hypoxia J96.01 Pericardial effusion I31.3 Acid reflux K21.9 Esophagitis presence: without esophagitis Hypothyroidism E03.9 Hypothyroidism type: acquired Elevated AST (SGOT) R74.01 Morbid obesity with BMI of 40.0-44.9, adult E66.01; Z68.41 DVT prophylaxis Z29.9 (1) Hypothyroidism Hypothyroidism type: acquired Qualified Code(s): E03.9 - Hypothyroidism, unspecified (2) Acid reflux Esophagitis presence: without esophagitis Qualified Code(s): K21.9 - Gastro- esophageal reflux disease without esophagitis
[2020-04-27] MEDS: REMDESIVIR 100 MG in SODIUM CHLORIDE 0.9% 230 ML IV SCH (21:47)
[2020-04-28] MEDS: SODIUM CHLORIDE 0.9% 10ML FLUSH IV SCH ×2 (00:08→21:22)
[2020-04-28 08:05] LABS: Hematocrit (blood only) 34.7 % (37-47); Hemoglobin 11.3 g/dL (12.0-16.0); Mean Corpuscular Hemoglobin 28.2 pg (25-34); Mean Corpuscular Hgb Conc 32.6 g/dL (32-36); Mean Corpuscular Volume 86.5 fL (80-100); Mean Platelet Volume 12.3 fL (7.4-10.4); Platelet Count 137 K/uL (130-400); RDW Coefficient of Variation 15.6 % (11.5-14.5); RDW Standard Deviation 49.8 fL (36.4-46.3); Red Blood Count 4.01 M/uL (4.2-5.4); White Blood Count 4.03 K/uL (4.8-10.8)
[2020-04-28 08:41] LABS: BUN Creatinine Ratio 19.5 (10-20); Calcium 8.2 mg/dl (8.5-10.1); Est GFR (African American) 125.8; Est GFR (Non-African American) 108.5; Magnesium 2.8 mg/dl (1.8-2.4); Potassium 3.4 mmol/L (3.5-5.1)
[2020-04-28] MEDS: dexAMETHasone 6 MG in SYRINGE 0 ML IV SCH (09:24)
[2020-04-28] MEDS: ASPIRIN 81 MG ECTAB PO SCH (09:24)
[2020-04-28] MEDS: ENOXAPARIN INJ 60 MG/0.6 ML SYR SQ SCH ×2 (09:25→21:04)
[2020-04-28] MEDS: FAMOTIDINE 20 MG TAB PO SCH ×2 (09:26→21:03)
[2020-04-28] MEDS: guaiFENesin 600 MG TABCR PO SCH ×2 (09:26→21:03)
--- NOTE | 2020-04-28 12:18 | Hospitalist Progress Note ---
Date of Service April 28, 2020 Assessment & Plan (1) Pneumonia due to 2019 novel coronavirus: Initial dx 04/19/20, lab-confirmed via PCR. - Continue dexamethasone 6 mg IV daily (End date: 05/04/2020) - Continue self-proning, flutter valve, incentive spirometry. - Continue Mucinex 1200mg PO BID. - Continue Xopenex/Atrovent nebs q6h. - Continue remdesivir (End date: 04/28) - Continue ASA 81 mg PO daily (Intermediate-dose anticoagulation, aspirin, and in-hospital mortality in COVID-19: A propensity score-matched analysis) - Improving today. No new concerns. Hopefully home tomorrow with home O2. (2) Acute respiratory failure with hypoxia: 2nd to extensive COVID-19 pneumonia. - As above (3) Pericardial effusion: Mild-moderate on CTA chest on 04/24. No chest pain or pleuritic pain to suggest pericarditis. No EKG features to suggest pericarditis. - Echo ordered, but this won't be done until 2 weeks past Covid diagnosis. - No rub heard today. No indication of tamponade on exam or vitals. (4) Acid reflux: - Continue Pepcid 20mg PO BID. (5) Hypothyroidism: Listed as diagnosis in chart but not on meds. TSH was 2.5 this admission. - No inpatient needs (6) Elevated AST (SGOT): Likely 2nd to COVID-19 infection. Mild elevation with AST at 40. - Stable while inpatient; can recheck with PCP in 1-2 weeks. (7) Morbid obesity with BMI of 40.0-44.9, adult: BMI 41.3. (8) DVT prophylaxis: Lovenox 50mg SQ BID -> Intermediate dosage based on hospital protocol. Admission and Anticipated Discharge Date Admission Date: April 24, 2020 Subjective Feeling better today. More energy. Less shortness of breath. Reports no fevers/chills, chest pain, shortness of breath, abdominal pain, nausea, or vomiting. Physical Exam Constitutional: WD/WN, vitals as above Eyes: EOM intact bilaterally; no conjunctival abnormality ENMT: external ear and nose normal, oropharynx normal Neck: trachea midline, no thyromegaly normal visual inspection Respiratory: normal respiratory effort, lungs clear to auscultation no respiratory distress Cardiovascular: RRR, no murmur, no edema Gastrointestinal (Abdomen): Inspection/Auscultation: abdomen normal to inspection; abdomen not distended Musculoskeletal: no cyanosis or clubbing, extremities motor strength 5/5 Skin: no rashes, warm and dry Neurologic: moves all extremities and awake Psychiatric: Orientation: alert, oriented to person and cooperative Results & Data Results & Data ([facility]) Vital Signs (Past 12 Hours) Vital Signs Temp Pulse Resp BP Pulse Ox Pulse Ox 04/28/20 09:49 82 94 04/28/20 09:23 88 95 04/28/20 06:52 36.5 C 75 20 119/83 95 04/28/20 00:26 91 PG Care Time/CCT Total # of Minutes Spent Total Time Spent with Patient: Total time spent is greater than 50% in coordination of care (as documented) at patient's floor/unit and/or counseling patient: Coding Level of Care Code 15560 Subseq Hosp Care Lvl 2 Diagnoses Pneumonia due to 2019 novel coronavirus U07.1; J12.82 Acute respiratory failure with hypoxia J96.01 Pericardial effusion I31.3 Acid reflux K21.9 Esophagitis presence: without esophagitis Hypothyroidism E03.9 Hypothyroidism type: acquired Elevated AST (SGOT) R74.01 Morbid obesity with BMI of 40.0-44.9, adult E66.01; Z68.41 DVT prophylaxis Z29.9 (1) Acid reflux Esophagitis presence: without esophagitis Qualified Code(s): K21.9 - Gastro- esophageal reflux disease without esophagitis (2) Hypothyroidism Hypothyroidism type: acquired Qualified Code(s): E03.9 - Hypothyroidism, unspecified
[2020-04-28] MEDS ORDERED: POTASSIUM CHLORIDE 10 MEQ TABCR PO ONE (12:45)
[2020-04-28] MEDS: REMDESIVIR 100 MG in SODIUM CHLORIDE 0.9% 230 ML IV SCH (21:04)
[2020-04-28] MEDS: ONDANSETRON INJ 2 MG/ML 2 ML VIAL IV PRN (21:15)
[2020-04-29 08:18] LABS: Hematocrit (blood only) 36.3 % (37-47); Hemoglobin 12.1 g/dL (12.0-16.0); Mean Corpuscular Hemoglobin 28.6 pg (25-34); Mean Corpuscular Hgb Conc 33.3 g/dL (32-36); Mean Corpuscular Volume 85.8 fL (80-100); Mean Platelet Volume 11.9 fL (7.4-10.4); Platelet Count 192 K/uL (130-400); RDW Coefficient of Variation 15.8 % (11.5-14.5); RDW Standard Deviation 49.8 fL (36.4-46.3); Red Blood Count 4.23 M/uL (4.2-5.4); White Blood Count 4.53 K/uL (4.8-10.8)
[2020-04-29] MEDS: dexAMETHasone 6 MG in SYRINGE 0 ML IV SCH (08:35)
[2020-04-29] MEDS: ASPIRIN 81 MG ECTAB PO SCH (08:35)
[2020-04-29] MEDS: ENOXAPARIN INJ 60 MG/0.6 ML SYR SQ SCH (08:36)
[2020-04-29] MEDS: guaiFENesin 600 MG TABCR PO SCH (08:36)
[2020-04-29] MEDS: FAMOTIDINE 20 MG TAB PO SCH (08:36)
[2020-04-29 08:49] LABS: Albumin Level 2.8 gm/dl (3.4-5.0); BUN Creatinine Ratio 18.6 (10-20); Calcium 8.8 mg/dl (8.5-10.1); Creatinine Clr Calc Pharmacy 127.8 ml/min; Est GFR (African American) 125.1; Magnesium 2.7 mg/dl (1.8-2.4); Potassium 3.9 mmol/L (3.5-5.1)
[2020-04-29 08:53] LABS: Albumin Globulin Ratio 0.6 (0.9-2); Bilirubin,Total 0.5 mg/dl (0.2-1); Globulin 4.6 gm/dl (2.5-4.0); Total Protein 7.4 gm/dl (6.4-8.2)
--- NOTE | 2020-04-29 15:26 | Discharge Summary ---
Date of Service April 29, 2020 Admission HPI Per Admitting Provider Patricia Baker is a 49-year-old female who presents to the ER with worsening symptoms related to her known COVID-19 pneumonia. She reports ongoing fever, chills, shortness of breath, cough, myalgias, headache, nausea/vomiting, poor appetite, fatigue. She denies any loss of taste or smell, chest or abdominal pain. Initial symptoms started 10 days ago. Progressively getting worse over the last few days. In the ER chest x-ray concerning for bilateral perihilar airspace opacities consistent with multifocal pneumonia. Procalcitonin negative. CT angiogram was performed due to a D-dimer 1530 which was negative for pulmonary embolism. Principal Diagnosis Covid-19 pneumonia Discharge Exam Constitutional WD/WN, vitals as above Eyes EOM intact bilaterally; no conjunctival abnormality ENMT external ear and nose normal, oropharynx normal Neck trachea midline, no thyromegaly normal visual inspection Respiratory normal respiratory effort, lungs clear to auscultation no respiratory distress Cardiovascular RRR, no murmur, no edema Gastrointestinal (Abdomen) Inspection/Auscultation: abdomen normal to inspection; abdomen not distended Musculoskeletal no cyanosis or clubbing, extremities motor strength 5/5 Skin no rashes, warm and dry Neurologic moves all extremities and awake Psychiatric Orientation: alert, oriented to person and cooperative Discharge Data Allergies Allergy/AdvReac Type Severity Reaction Status Date / Time Sulfa (Sulfonamide Allergy Mild Gastrointestinal Verified 04/24/20 14:28 Antibiotics) Upset Penicillins Allergy Unknown RASH A Verified 04/24/20 14:28 CHILD, NO RESP SYMPTOMS Consultations 04/24/20 16:33 ED Decision to Admit Stat Ordered Studies 04/24/20 14:05 CT angio chest PE protocol Stat Hospital Course (1) Pneumonia due to 2019 novel coronavirus: Initial dx 04/19/20, lab-confirmed via PCR. - Continue dexamethasone 6 mg IV daily (End date: 05/04/2020) - Continue self-proning, flutter valve, incentive spirometry. - Continue Mucinex 1200mg PO BID. - Continue Xopenex/Atrovent nebs q6h. - Continue remdesivir (End date: 04/28) - Continue ASA 81 mg PO daily (Intermediate-dose anticoagulation, aspirin, and in-hospital mortality in COVID-19: A propensity score-matched analysis) - Ready for discharge today. Working with RT and CM to arrange home O2 (likely 2-3 L). Will finish steroid course with oral dexamethasone. Did encourage 2 weeks of aspirin 81 mg PO per above paper. (2) Acute respiratory failure with hypoxia: 2nd to extensive COVID-19 pneumonia. - As above (3) Pericardial effusion: Mild-moderate on CTA chest on 04/24. No chest pain or pleuritic pain to suggest pericarditis. No EKG features to suggest pericarditis. - Echo ordered, but this won't be done until 2 weeks past Covid diagnosis. - No rub heard today. No indication of tamponade on exam or vitals. - Could consider outpatient TTE in 2 weeks, but my concern for significant pleural effusion is very low given patient's overall state of health and improvement. (4) Acid reflux: - Continue Pepcid 20mg PO BID. (5) Hypothyroidism: Listed as diagnosis in chart but not on meds. TSH was 2.5 this admission. - No inpatient needs (6) Elevated AST (SGOT): Likely 2nd to COVID-19 infection. Mild elevation with AST at 40. - Stable while inpatient; can recheck with PCP in 1-2 weeks. (7) Morbid obesity with BMI of 40.0-44.9, adult: BMI 41.3. (8) DVT prophylaxis: Lovenox 50mg SQ BID -> Intermediate dosage based on hospital protocol. Total Time Total Time Spent Total Time Spent (In Minutes): 35 Discharge Plan Discharge Items Patient Disposition: Home - Self-Care Reason For Visit: COVID-19 HYPOXIA Discharge Diagnosis: Covid-19 pneumonia Activity: Resume your previous activity Non-emergency contact: Primary Care Provider Call non-emergency contact if: your symptoms worsen and your temperature is above 101 Follow-up/Referrals: Tameka Anderson CRNP [Primary Care Provider] - 05/03/20 11:00 am (VIDEO CALL F/U WITH PCP.) Diet: Regular Addtl Attending Provider Instructions: Ms. Baker, You were admitted to the hospital with Covid-19 pneumonia. You overall did well and have been improving the last few days. We did an oxygen qualification test and will send you home on some oxygen. Hopefully this is temporary (maybe for another few weeks). Please follow up with your PCP to monitor your oxygen levels and hopefully be off oxygen eventually. We are sending you home on the last few days of your steroid (called dexamethasone). Please take this once a day in the morning. Your next dose will be tomorrow morning (04/30/2020). Please take it each day until it is gone. You can also take a baby aspirin (81 mg) for the next 2 weeks. There is some early evidence that aspirin can help prevent more severe Covid, so while you recover, you can continue to take this. Pending Studies at Discharge: No Stand-Alone Forms: My [facility] Medications and DC Order Prescriptions: New aspirin 81 mg Tablet,Delayed Release (Dr/Ec) 81 mg PO QAM Qty: 14 RF: 0 dexamethasone 6 mg tablet 6 mg PO DAILY Qty: 5 RF: 0 Continued ondansetron HCl 4 mg tablet 4 mg PO Q8H PRN (Reason: nausea and vomiting) Qty: 20 RF: 1 tramadol 50 mg tablet See Rx Instructions PO Q6H PRN (Reason: pain) Qty: 20 RF: 0 Discharge Orders: Discharge Order (Routine); Ordered 04/29/20 Ordered By: Oli Aparicio/Other Patient Handouts: Using Oxygen Safely, Traveling with Oxygen, Using an Oxygen Tank at Home, Dexamethasone tablets Admission Data Admit Date/Time: 04/24/20 17:21 Attending Provider: Oli Rausch Admit Provider: Gavino Burnett Primary Care Provider: Tameka Anderson Other Providers: Oli Rausch Other Interventions: Discharge Summary Assessment (RN) Last Done: 04/29/20 10:08 Coding Level of Care Code D/C Day Management >30 mins Diagnoses Pneumonia due to 2019 novel coronavirus U07.1; J12.82 Acute respiratory failure with hypoxia J96.01 Pericardial effusion I31.3 Acid reflux K21.9 Esophagitis presence: without esophagitis Hypothyroidism E03.9 Hypothyroidism type: acquired Elevated AST (SGOT) R74.01 Morbid obesity with BMI of 40.0-44.9, adult E66.01; Z68.41 DVT prophylaxis Z29.9
== END 2020-04-29 13:49 | disposition home or self-care (01) | DRG 177 ==
LOC: ED 13:40 → 3N 17:21 → SUATTDRO 17:21 → 3N 18:13